=== PATIENT | female | born 2000 | race Hispanic/Latino ===

== ENCOUNTER 2024-04-14 02:51 | Emergency (ER) | payer SELFPAY ==
[2024-04-14] MEDS ORDERED: Ketorolac Tromethamine 30 MG (1 mL) VIAL ONE (03:31)
== END 2024-04-14 04:02 | disposition home or self-care (01) ==
LOC: ERS 02:51 → EDBD 02:51 → ERS 04:02
DX: S63.501A Unspecified sprain of right wrist, initial encounter (principal); I10 Essential (primary) hypertension; W01.0XXA Fall on same level from slipping, tripping and stumbling without subsequent striking against object, initial encounter
CPT/HCPCS: 96372; 99283; J1885